=== PATIENT | female | born 1955 | race Caucasian/White ===

== ENCOUNTER 2019-11-16 22:16 | Emergency (ER) | payer BC ==
[~2019-11-16] VITALS: Ht 160 cm; Wt 79.6 kg
[2019-11-16 22:17] VITALS: BP 159/99
[2019-11-16] MEDS ORDERED: FLUORESCEIN OPHTH 1 MG STRIP OU ONE (22:45)
[2019-11-16] MEDS ORDERED: TETRACAINE 0.5% OPHTH SOLN 4ML OU ONE (22:45)
== END 2019-11-17 00:10 | disposition home or self-care (01) ==
LOC: M ED 22:16
DX: H53.19 Other subjective visual disturbances (principal); Z86.73 Personal history of transient ischemic attack (TIA), and cerebral infarction without residual deficits; D68.61 Antiphospholipid syndrome; Z79.01 Long term (current) use of anticoagulants; Z88.0 Allergy status to penicillin